=== PATIENT | male | born 1975 | race Two or more races ===

== ENCOUNTER 2018-05-01 08:36 | Outpatient (CLI) | payer OTHER ==
[2018-05-01] VITALS (13 sets, daily range): BP systolic 98–133; BP diastolic 62–93
[2018-05-01] MEDS ORDERED: LORA10TA68 PO (09:12)
[2018-05-01] MEDS ORDERED: MULT1TAB52 PO (09:12)
[2018-05-01] MEDS ORDERED: GELATIN SPONGE SIZE 12-7MM SPONGE. ONE (09:38)
[2018-05-01] MEDS ORDERED: LIDOCAINE WITH 8.4% SOD BICARB 3 ML DISP.SYRIN. ONE (09:38)
[2018-05-01] MEDS ORDERED: fentaNYL PF VIAL 100 MCG/2 ML VIAL ONE (09:43)
[2018-05-01] MEDS ORDERED: MIDAZOLAM HCL/PF 2 MG/2 ML VIAL. ONE (09:43)
[2018-05-01 09:49] LABS: PROTHROMBIN TIME PATIENT 16.3 SEC (11.7-14.0)
--- NOTE | 2018-05-01 10:26 | PDOC ---
MODERATE SEDATION ASSESSMENT RISKS/ALTERNATIVES Risks/Alternatives Risks and alternatives of this type of sedation and procedure discussed with: RISK/ALTERNATIVES: Patient H & P ON CHART H & P H & P on chart and reviewed for co-morbid conditions and appropriate labs. H&P ON CHART: Yes STATUS PREG STATUS ASSESSED: Yes MEDS/ALLERGIES REVIEWED Meds/Allergies Reviewed Medications and Allergies including time and route of recently administered narcotics and sedatives. MEDS/ALLERGIES REVIEWED: Yes ASA RATING ASA RATING: II AIRWAY ASSESSMENT Airway Assessment Airway patency, oral function limitations, presence of caps, crowns, dentures, partials, and ability to extend neck assessed. AIRWAY ASSESSMENT: Yes MALLAMPATI SCORE MALLAMPATI SCORE: II PRE-SEDATION ASSESSMENT PRE-SEDATION ASSESSMENT: Yes FERNANDEZ LIANG MD May 01, 2018 10:26
--- NOTE | 2018-05-01 10:27 | PDOC ---
BRIEF OPERATIVE NOTE Pre-Op Diagnosis elevated lfts Post-Op Diagnosis same Procedure Performed CT Liver biopsy Surgeon Shayy Anesthesia Type: Conscious Sedation Specimens Obtained 3 x 18g cores Complications No immediate FERNANDEZ LIANG MD May 01, 2018 10:27
--- NOTE | 2018-05-01 10:28 | PDOC1 ---
History and Physical Date of Procedure Date of Admission History of Present Illness Reason for Visit Adult male with elevated LFTs Past Medical History Past Medical History see nursing pre-op assessment Current Medications Current Medications Current Medications Lidocaine/Sodium Bicarbonate (Buffered Lidocaine 1%) 3 ml STK-MED ONCE .ROUTE ; Start 05/01/18 at 09:38; Stop 05/01/18 at 09:39; Status DC Gelatin (Gelfoam Size 12-7mm) 1 each STK-MED ONCE .ROUTE ; Start 05/01/18 at 09 :38; Stop 05/01/18 at 09:39; Status DC Midazolam HCl (Versed) 2 mg STK-MED ONCE .ROUTE ; Start 05/01/18 at 09:43; Stop 05/01/18 at 09:44; Status DC Fentanyl Citrate (Fentanyl 2ml Vial) 100 mcg STK-MED ONCE .ROUTE ; Start at 09:43; Stop 05/01/18 at 09:44; Status DC Lidocaine/Sodium Bicarbonate (Buffered Lidocaine 1%) 3 ml 1X ONCE IJ Last administered on 05/01/18at 10:24; Start 05/01/18 at 10:30; Stop 05/01/18 at 10:31 Midazolam HCl (Versed) 2 mg 1X ONCE IV Last administered on 05/01/18at 10:24; Start 05/01/18 at 10:30; Stop 05/01/18 at 10:31 Fentanyl Citrate (Fentanyl 2ml Vial) 100 mcg 1X ONCE IV Last administered on at 10:24; Start 05/01/18 at 10:30; Stop 05/01/18 at 10:31 Gelatin (Gelfoam Size 12-7mm) 1 each 1X ONCE TP Last administered on at 10:25; Start 05/01/18 at 10:30; Stop 05/01/18 at 10:31 Active Scripts Active Reported Multivitamins (Multivitamin) 1 Each Tablet 1 Tab PO DAILY Claritin (Loratadine) 10 Mg Tablet 1 Tab PO DAILY Allergies Allergies: Coded Allergies: No Known Drug Allergies (Unverified , 05/01/18) Physical Exam Vital Signs Vital Signs Date Time Temp Pulse Resp B/P (MAP) Pulse Ox O2 Delivery O2 Flow Rate FiO2 05/01/18 10:24 14 95 Nasal Cannula 2.0 9/20/18 10:19 53 05/01/18 09:18 98.2 121/75 (12) 98.2 Other see nursing pre-op assessment Assessment Assessment Elevated LFTs Plan Plan CT Liver biopsy FERNANDEZ LIANG MD May 01, 2018 10:28
[2018-05-01] MEDS ORDERED: fentaNYL PF VIAL 100 MCG/2 ML VIAL IV ONE (10:30)
[2018-05-01] MEDS ORDERED: GELATIN SPONGE SIZE 12-7MM SPONGE. TP ONE (10:30)
[2018-05-01] MEDS ORDERED: LIDOCAINE WITH 8.4% SOD BICARB 3 ML DISP.SYRIN. IJ ONE (10:30)
[2018-05-01] MEDS ORDERED: MIDAZOLAM HCL/PF 2 MG/2 ML VIAL. IV ONE (10:30)
[2018-05-01 10:56] LABS: BASO % 1 % (0-3); EOS # 0.2 x10^3/uL (0.0-0.7); EOS % 4 % (0-3); HEMATOCRIT 41.4 % (39.0-53.0); LYMPH # 2.8 x10^3/uL (1.0-4.8); LYMPH % 51 % (24-48); MEAN CORPUSCULAR HEMOGLOBIN 29 pg (25-35); MEAN CORPUSCULAR HGB CONC 34 g/dL (31-37); MEAN CORPUSCULAR VOLUME 87 fL (79-100); MONO # 0.5 x10^3/uL (0.0-1.1); MONO % 9 % (0-9); NEUT % 36 % (31-73); PLATELET COUNT 225 x10^3/uL (140-400); RED BLOOD COUNT 4.79 x10^6/uL (4.30-5.70); RED CELL DISTRIBUTION WIDTH 13.3 % (11.5-14.5); WHITE BLOOD COUNT 5.6 x10^3/uL (4.0-11.0)
--- NOTE | 2018-05-01 11:22 | RAD ---
Procedure: US-guided liver biopsy Clinical Indication: 42-year-old male with elevated liver function tests Sedation: Conscious sedation was administered with a total intraprocedural [id number] time of 22 minutes. The patient was monitored by a qualified independent observer throughout the time of sedation. Please refer to the medical record for exact doses of medications utilized to achieve moderate sedation. Antibiotics: None Sterility: The procedure was performed in its entirety using appropriate elements of sterile technique. Consent: The procedure was explained in its entirety to the patient or the patients designated branch customer service representative by a member of the treatment team, including a discussion of the risks, benefits and commonly accepted alternatives to the procedure, as well as the expected consequences of no therapy whatsoever. Discussion of the risks included, but was not limited to, those that are most frequent and those that are rare but possibly severe or life-threatening, as well as the possibility of unforeseen complications. Technique and Findings: Following informed consent, the patient was prepped and draped in usual sterile fashion. 1% lidocaine was used to achieve local anesthesia over the right upper quadrant. A small dermatotomy was made. Under ultrasound guidance, a 17-gauge needle guide was advanced into the right lower liver and 4 x 18-gauge core biopsy specimens were obtained and preserved in formalin. Gelfoam pledgets were applied as the needle was removed and hemostasis was achieved with manual compression. Hardcopy ultrasound images were recorded. Complications: No immediate Impression: 1. Ultrasound-guided liver biopsy as described
[2018-05-02] MEDS ORDERED: OXYC5CAP PO (01:41)
== END 2018-05-01 12:50 | disposition home or self-care (01) ==
LOC: INTRAD 08:36
PROVIDERS: ATTEND Internal Medicine Gastroenterology
DX: R94.5 Abnormal results of liver function studies (principal); Z79.01 Long term (current) use of anticoagulants; Z79.899 Other long term (current) drug therapy
CPT/HCPCS: 36415; 47000; 76942; 85025; 85610; 85730; 99152; J2250; J3010

== ENCOUNTER 2018-05-01 22:25 | Emergency (ER) | payer OTHER ==
[~2018-05-01] VITALS: Ht 172.7 cm; Wt 86.2 kg
[~2018-05-01 22:25] MED LIST: LORA10TA68 PO; MULT1TAB52 PO
--- NOTE | 2018-05-01 23:12 | PHYS DOC ---
Adult General Chief Complaint Chief Complaint: FEVER HPI HPI Patient is a 42 year old [f__sex] who presents with [] Review of Systems Review of Systems Constitutional: Denies fever or chills [] Eyes: Denies change in visual acuity, redness, or eye pain [] HENT: Denies nasal congestion or sore throat [] Respiratory: Denies cough or shortness of breath [] Cardiovascular: No additional information not addressed in HPI [] GI: Denies abdominal pain, nausea, vomiting, bloody stools or diarrhea [] : Denies dysuria or hematuria [] Musculoskeletal: Denies back pain or joint pain [] Integument: Denies rash or skin lesions [] Neurologic: Denies headache, focal weakness or sensory changes [] Endocrine: Denies polyuria or polydipsia [] All other systems were reviewed and found to be within normal limits, except as documented in this note. Current Medications Current Medications Current Medications Medications (Trade) Dose Ordered Sig/Dipak Start Time Stop Time Status Last Admin Dose Admin Fentanyl Citrate (Fentanyl 2ml Vial) 50 mcg 1X ONCE 05/01/18 23:30 05/02/18 00:15 DC 05/01/18 23:45 50 MCG Ibuprofen (Motrin) 600 mg 1X ONCE 05/01/18 23:30 05/02/18 00:15 DC 05/01/18 23:45 600 MG Info (CONTRAST GIVEN -- Rx MONITORING) 1 each PRN DAILY PRN 05/02/18 00:30 05/04/18 00:29 Iohexol (Omnipaque 300 Mg/ml) 75 ml 1X ONCE 05/02/18 00:00 05/02/18 00:15 DC 05/02/18 00:04 75 ML Sodium Chloride 1,000 ml @ 1,000 mls/hr 1X ONCE 05/01/18 23:15 05/02/18 00:14 DC 05/01/18 23:44 1,000 MLS/HR Allergies Allergies Allergies Coded Allergies Type Severity Reaction Last Updated Verified No Known Drug Allergies 05/01/18 No Physical Exam Physical Exam Constitutional: Well developed, well nourished, no acute distress, non-toxic appearance. [] HENT: Normocephalic, atraumatic, bilateral external ears normal, oropharynx moist, no oral exudates, nose normal. [] Eyes: PERRLA, EOMI, conjunctiva normal, no discharge. [] Neck: Normal range of motion, no tenderness, supple, no stridor. [] Cardiovascular:Heart rate regular rhythm, no murmur [] Lungs & Thorax: Bilateral breath sounds clear to auscultation [] Abdomen: Bowel sounds normal, soft, no tenderness, no masses, no pulsatile masses. [] Skin: Warm, dry, no erythema, no rash. [] Back: No tenderness, no CVA tenderness. [] Extremities: No tenderness, no cyanosis, no clubbing, ROM intact, no edema. [] Neurologic: Alert and oriented X 3, normal motor function, normal sensory function, no focal deficits noted. [] Psychologic: Affect normal, judgement normal, mood normal. [] Current Patient Data Vital Signs Vital Signs Date Time Temp Pulse Resp B/P (MAP) Pulse Ox O2 Delivery O2 Flow Rate FiO2 05/02/18 00:30 88 21 137/79 (98) 95 Room Air 05/01/18 23:00 100.4 100.4 Lab Values Laboratory Tests Test 05/01/18 23:15 05/02/18 00:30 White Blood Count 10.8 x10^3/uL (4.0-11.0) Red Blood Count 5.02 x10^6/uL (4.30-5.70) Hemoglobin 14.9 g/dL (13.0-17.5) Hematocrit 42.7 % (39.0-53.0) Mean Corpuscular Volume 85 fL (79-100) Mean Corpuscular Hemoglobin 30 pg (25-35) Mean Corpuscular Hemoglobin Concent 35 g/dL (31-37) Red Cell Distribution Width 13.4 % (11.5-14.5) Platelet Count 228 x10^3/uL (140-400) Neutrophils (%) (Auto) 77 % (31-73) H Lymphocytes (%) (Auto) 15 % (24-48) L Monocytes (%) (Auto) 7 % (0-9) Eosinophils (%) (Auto) 1 % (0-3) Basophils (%) (Auto) 1 % (0-3) Neutrophils # (Auto) 8.3 x10^3uL (1.8-7.7) H Lymphocytes # (Auto) 1.6 x10^3/uL (1.0-4.8) Monocytes # (Auto) 0.8 x10^3/uL (0.0-1.1) Eosinophils # (Auto) 0.1 x10^3/uL (0.0-0.7) Basophils # (Auto) 0.1 x10^3/uL (0.0-0.2) Prothrombin Time 16.3 SEC (11.7-14.0) H Prothrombin Time INR 1.4 (0.8-1.1) H PTT 32 SEC (24-38) Sodium Level 138 mmol/L (136-145) Potassium Level 3.8 mmol/L (3.5-5.1) Chloride Level 103 mmol/L (98-107) Carbon Dioxide Level 25 mmol/L (21-32) Anion Gap 10 (6-14) Blood Urea Nitrogen 15 mg/dL (8-26) Creatinine 1.0 mg/dL (0.7-1.3) Estimated GFR (Cockcroft-Gault) 82.8 BUN/Creatinine Ratio 15 (6-20) Glucose Level 142 mg/dL (70-99) H Lactic Acid Level 1.3 mmol/L (0.4-2.0) Calcium Level 8.9 mg/dL (8.5-10.1) Magnesium Level 1.8 mg/dL (1.8-2.4) Total Bilirubin 0.4 mg/dL (0.2-1.0) Aspartate Amino Transferase (AST) 36 U/L (15-37) Alanine Aminotransferase (ALT) 68 U/L (16-63) H Alkaline Phosphatase 81 U/L (46-116) Creatine Kinase 129 U/L (39-308) Troponin I Quantitative < 0.017 ng/mL (0.000-0.055) Total Protein 7.9 g/dL (6.4-8.2) Albumin 3.9 g/dL (3.4-5.0) Albumin/Globulin Ratio 1.0 (1.0-1.7) Lipase 190 U/L (73-393) Urine Collection Type Unknown Urine Color Yellow Urine Clarity Clear Urine pH 8.0 Urine Specific [place] >=1.030 Urine Protein Negative mg/dL (NEG-TRACE) Urine Glucose (UA) Negative mg/dL (NEG) Urine Ketones (Stick) Negative mg/dL (NEG) Urine Blood Negative (NEG) Urine Nitrite Negative (NEG) Urine Bilirubin Negative (NEG) Urine Urobilinogen Dipstick 0.2 mg/dL (0.2 mg/dL) Urine Leukocyte Esterase Negative (NEG) Urine RBC 6-10 /HPF (0-2) Urine WBC Occ /HPF (0-4) Urine Squamous Epithelial Cells Occ /LPF Urine Bacteria 0 /HPF (0-FEW) Urine Mucus Slight /LPF Laboratory Tests 05/01/18 23:15 Laboratory Tests 05/01/18 23:15 EKG EKG @2350: NSR at 92bpm, J point elevation V2-v6, no reciprocal changes. Radiology/Procedures Radiology/Procedures PROCEDURE: CT CHEST ABD PELVIS W/CONTRAST CT scan of the chest abdomen and pelvis with contrast 05/02/2018 CLINICAL HISTORY: Fever, chest pain and abdominal pain. Liver biopsy earlier today. TECHNIQUE: After the intravenous administration of 75 cc of Omnipaque 300, contiguous, 5 mm axial sections were obtained through the chest, abdomen and pelvis. One or more of the following individualized dose reduction techniques were utilized for this study: 1. Automated exposure control. 2. Adjustment of the mA and/or kV according to patient size. 3. Use of iterative reconstruction technique. FINDINGS: The heart and thoracic aorta are within normal limits. No hilar, mediastinal or axillary lymphadenopathy is seen. Minimal dependent subsegmental atelectasis is seen involving both lungs. No acute pulmonary infiltrate is seen. No pleural effusion or pneumothorax is noted. The liver parenchyma has a decreased attenuation suggesting mild fatty infiltration. No focal abnormality of the liver is seen. No subcapsular hematoma is noted. The spleen, pancreas, adrenal glands and right kidney are within normal limits. A 1.7 cm rounded low-attenuation lesion is seen involving the midpole of the left kidney. This likely represents a cyst. Mild atherosclerotic calcification abdominal aorta is seen. The abdominal aorta tapers normally. The gallbladder is contracted. No free fluid or free air is seen within the abdomen. There is no evidence of bowel obstruction. Air and stool seen throughout the colon. Images through the pelvis demonstrate the urinary bladder distended with urine. No free fluid is seen. Very mild S-shaped curvature of the thoracolumbar spine is noted. Degenerative changes are seen involving thoracic and throughout the lumbar spine. IMPRESSION: No acute abnormality is seen. Electronically signed by: Randell Bal MD (05/02/2018 12:26 AM) [facility] Course & Med Decision Making Course & Med Decision Making Pertinent Labs and Imaging studies reviewed. (See chart for details) [] Dragon Disclaimer Dragon Disclaimer This electronic medical record was generated, in whole or in part, using a voice recognition dictation system. Departure Departure Impression: Primary Impression: Abdominal pain Additional Impressions: Other acute postprocedural pain Fever Disposition: HOME, SELF-CARE Condition: IMPROVED Referrals: SHAWN BOYD MD (PCP) Patient Instructions: Abdominal Pain (Nonspecific), Fever, Adult, [id number]-Tmgd Scripts Oxycodone Hcl (OXYCODONE HCL) 5 Mg Capsule 0.5 CAP PO Q4HRS PRN for PAIN, #6 CAP Prov: ADELAIDA TBUBS DO 05/02/18 Problem Qualifiers Primary Impression: Abdominal pain Abdominal location: unspecified location Qualified Codes: R10.9 - Unspecified abdominal pain Additional Impressions: Fever Fever type: unspecified Qualified Codes: R50.9 - Fever, unspecified ADELAIDA TUBBS DO May 01, 2018 23:11
[2018-05-01] MEDS ORDERED: IV NORMAL SALINE 1000ML BAG 1,000 ML IV ONE (23:15)
[2018-05-01 23:27] LABS: BASO # 0.1 x10^3/uL (0.0-0.2); BASO % 1 % (0-3); EOS # 0.1 x10^3/uL (0.0-0.7); EOS % 1 % (0-3); HEMATOCRIT 42.7 % (39.0-53.0); HEMOGLOBIN 14.9 g/dL (13.0-17.5); LYMPH # 1.6 x10^3/uL (1.0-4.8); LYMPH % 15 % (24-48); MEAN CORPUSCULAR HEMOGLOBIN 30 pg (25-35); MEAN CORPUSCULAR HGB CONC 35 g/dL (31-37); MEAN CORPUSCULAR VOLUME 85 fL (79-100); MONO # 0.8 x10^3/uL (0.0-1.1); MONO % 7 % (0-9); NEUT # 8.3 x10^3uL (1.8-7.7); NEUT % 77 % (31-73); PLATELET COUNT 228 x10^3/uL (140-400); RED BLOOD COUNT 5.02 x10^6/uL (4.30-5.70); RED CELL DISTRIBUTION WIDTH 13.4 % (11.5-14.5); WHITE BLOOD COUNT 10.8 x10^3/uL (4.0-11.0)
[2018-05-01] MEDS ORDERED: fentaNYL PF VIAL 100 MCG/2 ML VIAL IV ONE (23:30)
[2018-05-01] MEDS ORDERED: IBUPROFEN 600 MG TABLET. PO ONE (23:30)
[2018-05-01 23:37] LABS: PROTHROMBIN TIME PATIENT 16.3 SEC (11.7-14.0)
[2018-05-01 23:48] LABS: CALCIUM 8.9 mg/dL (8.5-10.1); GFR 82.8; POTASSIUM 3.8 mmol/L (3.5-5.1)
[2018-05-01 23:55] LABS: ALBUMIN 3.9 g/dL (3.4-5.0); MAGNESIUM 1.8 mg/dL (1.8-2.4); TOTAL BILIRUBIN 0.4 mg/dL (0.2-1.0); TOTAL PROTEIN 7.9 g/dL (6.4-8.2)
[2018-05-02] MEDS ORDERED: IOHEXOL 300 MG/ML 100ML VIAL. IV ONE
--- NOTE | 2018-05-02 00:29 | RAD ---
CT scan of the chest abdomen and pelvis with contrast 05/02/2018 CLINICAL HISTORY: Fever, chest pain and abdominal pain. Liver biopsy earlier today. TECHNIQUE: After the intravenous administration of 75 cc of Omnipaque 300, contiguous, 5 mm axial sections were obtained through the chest, abdomen and pelvis. One or more of the following individualized dose reduction techniques were utilized for this study: 1. Automated exposure control. 2. Adjustment of the mA and/or kV according to patient size. 3. Use of iterative reconstruction technique. FINDINGS: The heart and thoracic aorta are within normal limits. No hilar, mediastinal or axillary lymphadenopathy is seen. Minimal dependent subsegmental atelectasis is seen involving both lungs. No acute pulmonary infiltrate is seen. No pleural effusion or pneumothorax is noted. The liver parenchyma has a decreased attenuation suggesting mild fatty infiltration. No focal abnormality of the liver is seen. No subcapsular hematoma is noted. The spleen, pancreas, adrenal glands and right kidney are within normal limits. A 1.7 cm rounded low-attenuation lesion is seen involving the midpole of the left kidney. This likely represents a cyst. Mild atherosclerotic calcification abdominal aorta is seen. The abdominal aorta tapers normally. The gallbladder is contracted. No free fluid or free air is seen within the abdomen. There is no evidence of bowel obstruction. Air and stool seen throughout the colon. Images through the pelvis demonstrate the urinary bladder distended with urine. No free fluid is seen. Very mild S-shaped curvature of the thoracolumbar spine is noted. Degenerative changes are seen involving thoracic and throughout the lumbar spine. IMPRESSION: No acute abnormality is seen. Electronically signed by: Randell Bal MD (05/02/2018 12:26 AM) [facility]
[2018-05-02 00:30] VITALS: BP 137/79
[2018-05-02] MEDS ORDERED: CONTRAST GIVEN. MC PRN (00:30)
[2018-05-02 00:40] LABS: BILIRUBIN,URINE NEGATIVE (NEG); CLARITY,URINE CLEAR; COLOR,URINE YELLOW; NITRITE,URINE NEGATIVE (NEG); PROTEIN,URINE NEGATIVE (NEG-TRACE); UROBILINOGEN,URINE 0.2 mg/dL (0.2 mg/dL)
[2018-05-02 00:45] LABS: BACTERIA,URINE 0 /HPF (0-FEW); SQUAMOUS EPITHELIAL CELL,UR OCC /LPF; WBC,URINE OCC /HPF (0-4)
[2018-05-02] MEDS ORDERED: OXYC5CAP PO (01:41)
--- NOTE | 2018-05-02 06:24 | EKG ---
[facility] [address] [place] [address] Test Date: 2018-05-01 Test Time: 23:50:16 Pat Name: BURTON DANG Department: Room: Gender: M Order Builder: : [id number] Requested By: ADELAIDA TUBBS Order Number: [id number] Reading MD: Bobby Lozano Measurements Intervals [place] Rate: 92 P: 38 WI: 168 QRS: -12 QRSD: 94 T: 31 QT: 326 QTc: 408 Interpretive Statements SINUS RHYTHM LEFT ATRIAL ABNORMALITY LEFTWARD AXIS ABNORMAL ECG RI6.01 No previous ECG available for comparison Electronically Signed On 05-06-2018 10:46:28 CDT by Bobby Lozano
== END 2018-05-02 02:17 | disposition home or self-care (01) ==
LOC: ER 22:25
DX: G89.18 Other acute postprocedural pain (principal); R10.9 Unspecified abdominal pain; R50.9 Fever, unspecified; R59.1 Generalized enlarged lymph nodes; I70.0 Atherosclerosis of aorta
CPT/HCPCS: 36415; 71260; 74177; 80053; 81001; 82550; 83605; 83690; 83735; 84484; 85025; 85610; 85730; 87040; 93005; 96374; 99285; J3010; J7030; Q9967